=== PATIENT | male | born 1960 | race Caucasian/White ===

== ENCOUNTER 2024-09-10 11:29 | Observation (INO) ==
[2024-09-10] MEDS: MAGNESIUM SULFATE / D5W 1 GM/100 ML BAG IV STA ×2 (12:57→14:04)
[2024-09-10] MEDS: ALBUT/IPRATROP 3MG/0.5MG NEB 3 ML VIAL NEB STA ×3 (12:57→15:28)
[2024-09-10 13:07] LABS: Basophils # (auto) 0.04 K/uL (0.00-0.20); Basophils % (auto) 0.5 %; Eosinophils # (auto) 0.01 K/uL (0.00-0.50); Eosinophils % (auto) 0.1 %; Hematocrit (blood only) 37.5 % (42.0-52.0); Hemoglobin 12.5 g/dl (14.0-18.0); Immature Granulocytes # (auto) 0.02 K/uL (0.01-0.20); Immature Granulocytes % (auto) 0.3 %; Lymphocytes # (auto) 1.27 K/uL (1.20-3.40); Lymphocytes % (auto) 16.6 %; Mean Corpuscular Hemoglobin 28.2 pg (25.0-34.0); Mean Corpuscular Hgb Conc 33.3 g/dL (32.0-36.0); Mean Corpuscular Volume 84.7 fL (80.0-100.0); Mean Platelet Volume 10.3 fL (9.4-12.4); Monocytes % (auto) 10.5 %; Neutrophils # (auto) 5.49 K/uL (1.40-6.50); Platelet Count 289 K/uL (130-400); RDW Standard Deviation 40.2 fL (36.4-46.3); Red Blood Count 4.43 M/uL (4.70-6.10); White Blood Count 7.63 K/ul (4.8-10.8)
--- NOTE | 2024-09-10 13:11 | XRay Report ---
XR chest 1V portable HISTORY: 64 years-old Male cough COMPARISON: 11/27/2023 TECHNIQUE: AP view the chest FINDINGS: Cardiac silhouette is mildly enlarged. Chronic interstitial coarsening with right mid lung new hazy i ll-defined airspace opacities. Chronic scarring/atelectasis of the lung bases. Bones appear grossly i ntact. There are apparent postoperative changes of the left lung base laterally. Chronic healed left- sided rib fractures. IMPRESSION: 1. Mild ill-defined right midlung opacities are suspicious for pneumonia. 2. Cardiomegaly with chronic interstitial coarsening of the lung bases. ACT 112: Negative or not required by law. The above report was generated using voice recognition software. It may contain grammatical, syntax o r spelling errors. Electronically signed by: Bam Dean M.D. 09/10/2024 1:09 PM
[2024-09-10 13:19] LABS: Albumin Level 4.1 gm/dl (3.4-5.0); Anion Gap 8 (3-11); Bilirubin,Total 0.9 mg/dl (0.2-1.0); Calcium 9.2 mg/dl (8.6-10.3); Carbon Dioxide 25 mmol/L (21-32); Chloride 103 mmol/L (98-107); Magnesium 1.4 mg/dl (1.7-2.4); Sodium 136 mmol/L (136-145)
[2024-09-10 13:25] LABS: Alanine Aminotransferase 20 U/L (7-52); Albumin Globulin Ratio 1.4 (0.9-2); Alkaline Phosphatase 61 U/L (34-104); Aspartate Aminotransferase 21 U/L (13-39); BUN Creatinine Ratio 9.6 (10-20); Blood Urea Nitrogen 10 mg/dl (6-23); Globulin 2.9 gm/dl (2.5-4.0); Glucose 118 mg/dl (70-99(Fasting)); Lipase 11 U/L (11-82)
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
[2024-09-10 13:42] LABS: Troponin I High Sensitivity 7.5 pg/ml (0-20)
[2024-09-10] MEDS: methylPREDNISolone 125 MG/2 ML VIAL IV STA (14:01)
[2024-09-10 14:03] LABS: Adenovirus PCR Not Detected (NotDetected); Bordetella parapertussis PCR Not Detected (NotDetected); Bordetella pertussis PCR Not Detected (NotDetected); Chlamydia pneumoniae PCR Not Detected (NotDetected); Coronavirus 229E PCR Not Detected (NotDetected); Coronavirus CoV-2 (COVID19)PCR Not Detected (NotDetected); Coronavirus HKU1 PCR Not Detected (NotDetected); Coronavirus NL63 PCR Not Detected (NotDetected); Coronavirus OC43PCR Not Detected (NotDetected); Human Metapneumovirus PCR Not Detected (NotDetected); Influenza A PCR Not Detected (NotDetected); Influenza B PCR Not Detected (NotDetected); Mycoplasma pneumoniae PCR Not Detected (NotDetected); Parainfluenza Virus 1 PCR Not Detected (NotDetected); Parainfluenza Virus 2 PCR Not Detected (NotDetected); Parainfluenza Virus 3 PCR Not Detected (NotDetected); Parainfluenza Virus 4 PCR DETECTED (NotDetected); Respiratory Syncytial VirusPCR Not Detected (NotDetected); Rhinovirus/Enterovirus PCR Not Detected (NotDetected)
[2024-09-10] MEDS: DOXYCYCLINE HYCLATE 100 MG CAP PO STA (14:06)
[2024-09-10] MEDS: cefTRIAXone SODIUM 2,000 MG/50 ML BAG IV STA (14:07)
[2024-09-10] MEDS: SODIUM CHLORIDE 0.9% 1,000 ML IV SCH (15:30)
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
[2024-09-10] MEDS ORDERED: GLUCAGON FOR INJ 1 MG VIAL SQ PRN (16:07)
[2024-09-10] MEDS ORDERED: GLUCOSE 40% GEL 15 GM TUBE PO PRN (16:07)
[2024-09-10] MEDS ORDERED: CARBOHYDRATES FOR HYPOGLYCEMIA PO PRN (16:07)
[2024-09-10] MEDS ORDERED: GLUCOSE 10 TAB/TUBE PO PRN (16:07)
[2024-09-10] MEDS ORDERED: DEXTROSE 50% 50 ML SYRINGE IV PRN (16:07)
[2024-09-10] MEDS ORDERED: ACETAMINOPHEN 500 MG TAB PO PRN (19:08)
[2024-09-10] MEDS ORDERED: POLYETHYLENE (MIRALAX) 17 GM PACK PO PRN (19:08)
[2024-09-10] MEDS ORDERED: ONDANSETRON INJ 2 MG/ML 2 ML VIAL IV PRN (19:08)
[2024-09-10] MEDS ORDERED: ALBUT/IPRATROP 3MG/0.5MG NEB 3 ML VIAL NEB PRN (19:08)
[2024-09-10] MEDS: INSULIN ASPART PER UNIT CHARGE SC SCH (19:11)
[2024-09-10] MEDS: ALBUT/IPRATROP 3MG/0.5MG NEB 3 ML VIAL INH SCH (20:40)
[2024-09-10] MEDS: ENOXAPARIN INJ 40 MG/0.4 ML SYR SQ SCH (21:32)
[2024-09-10] MEDS: TAMSULOSIN HCL 0.4 MG CAP PO SCH (21:33)
[2024-09-10] MEDS: MONTELUKAST SODIUM 10 MG TABLET PO SCH (21:33)
[2024-09-10] MEDS: FINASTERIDE 5 MG TAB PO SCH (21:33)
[2024-09-10] MEDS: BENZONATATE 100 MG CAPSULE PO PRN (21:55)
[2024-09-10] MEDS: DOXYCYCLINE HYCLATE 100 MG in DEXTROSE 5% MINI-B 100 ML IV SCH (22:48)
[2024-09-11] MEDS: DOXYCYCLINE HYCLATE 100 MG in DEXTROSE 5% MINI-B 100 ML IV SCH (01:03)
[2024-09-11] MEDS: ACETAMINOPHEN 325 MG TAB PO PRN (01:32)
[2024-09-11 06:32] LABS: Basophils # (auto) 0.01 K/uL (0.00-0.20); Basophils % (auto) 0.1 %; Hematocrit (blood only) 37.4 % (42.0-52.0); Hemoglobin 12.5 g/dl (14.0-18.0); Immature Granulocytes # (auto) 0.08 K/uL (0.01-0.20); Immature Granulocytes % (auto) 0.6 %; Lymphocytes # (auto) 1.26 K/uL (1.20-3.40); Mean Corpuscular Hemoglobin 28.5 pg (25.0-34.0); Mean Corpuscular Hgb Conc 33.4 g/dL (32.0-36.0); Mean Corpuscular Volume 85.4 fL (80.0-100.0); Mean Platelet Volume 10.3 fL (9.4-12.4); Monocytes # (auto) 0.85 K/uL (0.11-0.59); Monocytes % (auto) 6.8 %; Neutrophils # (auto) 10.37 K/uL (1.40-6.50); Neutrophils % (auto) 82.5 %; Platelet Count 314 K/uL (130-400); RDW Coefficient of Variation 13.2 % (11.5-14.5); RDW Standard Deviation 40.8 fL (36.4-46.3); Red Blood Count 4.38 M/uL (4.70-6.10); White Blood Count 12.57 K/ul (4.8-10.8)
[2024-09-11 06:48] LABS: Calcium 9.2 mg/dl (8.6-10.3); Creatinine Clr Calc Pharmacy 94.9 ml/min; Potassium 4.7 mmol/L (3.5-5.1)
--- NOTE | 2024-09-11 07:36 | Electrocardiogram Report ---
Test Reason : Blood Pressure : */* mmHG Vent. Rate : 81 BPM Atrial Rate : 81 BPM P-R Int : 138 ms QRS Dur : 130 ms QT Int : 362 ms P-R-T Axes : 64 94 38 degrees QTcB Int : 420 ms Sinus rhythm Premature atrial complexes Right bundle branch block Abnormal ECG When compared with ECG of 27-Nov-2023 10:28, Right bundle branch block has replaced Non-specific intra-ventricular conduction block Premature atrial complexes are now Present Confirmed by Adalid Jackson ([id number]) on 09/11/2024 7:35:41 AM Referred By: REFERRED SELF Confirmed By: Adalid Jackson
[2024-09-11] MEDS: LANTUS PER UNIT CHARGE SQ SCH (08:32)
[2024-09-11] MEDS: ATORVASTATIN 10 MG TAB PO SCH (08:40)
[2024-09-11] MEDS: FLUTICASONE/VILANTEROL 100/25MCG 14 PUFFS/INHALER INH SCH (08:40)
[2024-09-11] MEDS: methylPREDNISolone 40 MG in SYRINGE 0 ML IV SCH (08:40)
[2024-09-11] MEDS: lisinopril 20 MG TAB PO SCH (08:40)
--- NOTE | 2024-09-11 12:39 | Discharge Summary ---
Discharge Summary Date of Service September 11, 2024 Principal Dx & Hospital Course #1 = Principal Diagnosis (1) Pneumonia: (2) COPD with acute exacerbation: (3) Diabetes mellitus, type 2: (4) ELIZABETH on CPAP: (5) Tobacco use disorder: Micaela Herrera is a 64-year-old male with a past medical history of COPD/asthma, BPH, current smoker, hyperlipidemia, hypertension, sarcoidosis, ELIZABETH on CPAP who p/w worsening cough, SOB x 3-4 days. Has had fevers and chills, productive cough dark yellow. Has had some chest tightness. Feels similar to prior COPD/pneumonia episodes. Recommended for admission for pneumonia/COPD exacerbation with diffuse wheezing, and borderline hypoxia on exertion. Patient with significant wheezing despite 3 DuoNeb treatments, O2 90-92%. Parainfluenza virus with secondary bacterial PNA-Patient is parainfluenza positive, CXR w/ focal right midlung opacities concerning for superimposed pneumonia.No leukocytosis, no fever here but with productive cough treated w/ Rocephin/doxycycline and dc to home on po cefdinir an ddoxy to compelte 7 day course -needs repeat chest imaging in 4-6 weeks, but says he has CT chest ordered for end of Aug anyway for his PULM COPD treatment as below -f/u with PULM as scheduled in 1 week -continue tessalon perles prn cough which is helping Acute COPD exacerbation. COPD/asthma overlap- Follows up in [facility] pulmonology. Recently told he was asthma predominant more so than COPD, PFTs are not available for independent review at this time. Does have an extensive tobacco history. Much improved after receiving IV steroids, abx for PNA -convert steroids from IV to po prednisone 20mg po bid x 5 more days -continue home inhalers and nebs, montelukast continued -2 step walk test prior to discharge did not demonstrate any need for supplemental O2 Type II DM Metformin held which here but can be resumed on dc -treated with Lantus and novolog here but no significant hyperglycemia even with steroids Hypertension: BPs controlled, Continue lisinopril Hyperlipidemia: Continue statin BPH: Continue Flomax ELIZABETH: CPAP continued at bedtime Sarcoidosis: Not on active treatment. Denies recent steroid use. Follows with [facility] pulmonology. No acute change in management DVT prophylaxis: Lovenox Disposition: dc to home CODE STATUS: Full code Notes For Next Care Provider Check Chest CT in 4 weeks Medication Changes From Visit Added cefdinir 300mg po bid and doxycycline 100mg po bid x 5 days Added prednisone 20mg po bid x 5 days Admission HPI Per Admitting Provider Javier is a 64-year-old male with a past medical history of COPD, BPH, tobacco use, hyperlipidemia, hypertension who presents to the ER with worsening cough, shortness of breath of approximately 3-4 days. Has had fevers and chills, productive cough dark yellow. Has had some chest tightness. Feels similar to prior COPD/pneumonia episodes. Recommended for admission for pneumonia/COPD exacerbation +Fevers, chills last 2 days. +cough. +yellow sputum. +wheezing for a few days. He does have a history of COPD, tobacco abuse, and sarcoidosis. He follows with pulmonology [facility] but is not on active treatment for sarcoid. He reports that he had PFTs a few months ago and was told he had more asthma and did not have true underlying COPD despite his tobacco use and was switched to Breo and Singulair treatment. He feels like his breathing was fine on this regimen until he got sick this past week. He denies chest pain and chest pressure at time of assessment. Prior to admission No chest pain. No chest pressure but did have some tightness with breathing which improved with nebs, but still has wheezing No ETOH., Took medicines this AM No hx DVT/PE Denies hx heart disease Uses CPAP for ELIZABETH Medical History: Reviewed Medications: Reviewed Surgical History: Reviewed Family history: Reviewed Allergies: Reviewed Social History: Current smoker 0.5ppd x50 years. Declines patch. No ETOH use. Code Status: FUll Discharge Exam Constitutional WD/WN, vitals as above + obese Respiratory normal respiratory effort Auscultation: + diminished lung sounds (throughout) and + wheezes (faint exp wheezes,mostly upper airway); no rales and no rhonchi Cardiovascular RRR, no murmur, no edema Psychiatric A+Ox3, euthymic affect Discharge Plan Discharge Items Patient Disposition: Home - Self-Care Reason For Visit: COPD, PNA Discharge Diagnosis: Pneumonia COPD exacerbation Parainfluenza virus Activity: As commented below Lifting: Gradually increase as tolerated Bathing: No limitations Exercise/Sports: Gradually increase as tolerated Non-emergency contact: Primary Care Provider and Bag Hanger Call non-emergency contact if: you have any medication questions and your symptoms worsen Follow-up/Referrals: Andrew Kimbrough PA-C [Primary Care Provider] - 09/25/24 10:30 am (Follow up within 1-2 weeks) Diet: Regular Addtl Attending Provider Instructions: Please finish out 5 more days of the two antibiotics: cefdinir and doxycycline. Both antibiotics are to be taken twice a day. Please also finish out 5 more days of prednisone for your cough and wheezing. You can take the tessalon perles as needed for cough and continue using your nebulizers as needed for wheezing or cough. You should keep your appointment with your Bag Hanger for next week. Please continue to not smoke as we discussed. Pending Studies at Discharge: No Stand-Alone Forms: [facility] [address], Smoking Cessation Medications and DC Order Prescriptions: New benzonatate 100 mg Capsule 200 mg PO TID PRN (Reason: cough) Qty: 30 0RF prednisone 20 mg tablet 20 mg PO BID 5 Days Qty: 10 0RF cefdinir 300 mg capsule 300 mg PO BID 5 Days Qty: 10 0RF doxycycline hyclate 100 mg tablet 100 mg PO BID Qty: 10 0RF Continued (DME) lancets Misc See Rx Instructions .ROUTE .MEDSUPPLY Qty: 100 Rx Instructions: As directed (DME) OneTouch Ultra Test Strip See Rx Instructions .ROUTE .MEDSUPPLY Qty: 10 Rx Instructions: As directed metformin 500 mg tablet 500 mg PO BID lisinopril 20 mg tablet 20 mg PO QAM montelukast 10 mg tablet 10 mg PO HS atorvastatin 10 mg tablet 10 mg PO QAM finasteride 5 mg tablet 5 mg PO HS Qty: 90 3RF tamsulosin 0.4 mg capsule 0.4 mg PO HS Qty: 90 3RF albuterol sulfate 2.5 mg /3 mL (0.083 %) solution for nebulization 2.5 mg inhalation UD PRN (Reason: Shortness Of Breath Or Wheezing) albuterol sulfate [Ventolin HFA] 90 mcg/actuation HFA aerosol inhaler 2 puff INHALATION Q4 PRN (Reason: sob) acetaminophen [Tylenol Extra Strength] 500 mg Tablet 1,000 mg PO Q6 PRN (Reason: Pain) fluticasone furoate-vilanterol [Breo Ellipta] 100-25 mcg/dose blister with device 1 ea INHALATION QAM Discharge Orders: Discharge Order (Routine); Ordered 09/11/24 Ordered By: Lauren Garzon Admission Data Admit Date/Time: 09/10/24 16:06 Attending Provider: Lauren Garzon Admit Provider: Kwasi De Guzman Primary Care Provider: Andrew Kimbrough Other Providers: Kwasi De Guzman Other Interventions: Discharge Summary Assessment (RN) Last Done: 09/11/24 12:59 Hospital Stay Data Consultations 09/10/24 15:34 ED Decision to Admit Stat Pending Results Patient Have Any Pending Studies at Discharge: No Discharge Instructions Given to Patient (Per Discharging Provider) Please finish out 5 more days of the two antibiotics: cefdinir and doxycycline. Both antibiotics are to be taken twice a day. Please also finish out 5 more days of prednisone for your cough and wheezing. You can take the tessalon perles as needed for cough and continue using your nebulizers as needed for wheezing or cough. You should keep your appointment with your Bag Hanger for next week. Please continue to not smoke as we discussed. Total Time Total Time Spent Total Time Spent (In Minutes): 35 min Total Time Includes: Examination of the Patient, Discharge Planning and Medication Reconciliation Coding Level of Care Code 06926 INP/OBS DISCH >30 MIN Diagnoses Pneumonia J18.9 COPD with acute exacerbation J44.1 Diabetes mellitus, type 2 E11.9 ELIZABETH on CPAP G47.33; Z99.89 Tobacco use disorder F17.200
[2024-09-11] MEDS: cefTRIAXone SODIUM 2,000 MG/50 ML BAG IV SCH (14:00)
[2024-09-11 15:37] VITALS: BP 164/68; PULSE 92; RESP 18; TEMP 98.4; O2SAT 93
== END 2024-09-11 16:41 | disposition home or self-care (01) ==
LOC: ED 11:29 → EDINP 11:29 → SUATTDRO 16:06 → 3E 19:08